=== PATIENT | female | born 1995 | race Caucasian/White ===

== ENCOUNTER 2018-01-19 16:26 | Emergency (ER) | payer OTHER, MEDICAID, SELFPAY ==
[2018-01-19 16:28] VITALS: BP 130/72; PULSE 108; RESP 18; TEMP 36.6; O2SAT 98; BMI 37.4
--- NOTE | 2018-01-19 17:09 | EKG12_ITS ---
Test Reason : VOMITING Blood Pressure : / mmHG Vent. Rate : 083 BPM Atrial Rate : 083 BPM P-R Int : 170 ms QRS Dur : 076 ms QT Int : 354 ms P-R-T Axes : 028 -01 022 degrees QTc Int : 415 ms Normal sinus rhythm Normal ECG Confirmed by DEMETRIA SZYMANSKI, BRAYAN ([id number]), news editor JESSICA HILL ([id number]) on 01/23/2018 1:41:24 PM Referred By: BECKIE Confirmed By:BRAYAN AUGUSTIN MD
[2018-01-19 17:12] VITALS: BP 110/67; PULSE 93; RESP 16; O2SAT 98
[2018-01-19 17:40] LABS: Absolute Lymphocyte Count 1.65 X10^3/ul (0.83-4.51); Absolute Neutrophil Count 6.6 X10^3/uL (2.0-7.7); Basophil# 0.02 X10^3/uL; Basophil% 0.2 % (0-1); Eosinophil# 0.13 X10^3/uL; Eosinophils% 1.5 % (0-5); Hematocrit 33.3 % (37-47); Lymphocyte # 1.65 X10^3/ul (4.0); Lymphocyte % 18.6 % (19-41); Mean Corpuscular Hgb 29.6 pg (27.0-32.0); Mean Corpuscular Volume 89.8 fL (81-99); Mean Platelet Vol. 8.6 fl (6.2-12.0); Monocyte# 0.48 X10^3/uL; Monocyte% 5.4 % (0-10); Neutrophil # 6.55 X10^3/uL (2.7-7.7); Neutrophil % 73.6 % (47-70); Platelet Count 197 K/mm3 (150-450); RBC Distribution Width CV 13.5 % (11.6-14.6); RBC Distribution Width SD 43.8 fl (35.1-43.9); Red Blood Count 3.71 M/mm3 (4.2-5.4); White Blood Count 8.9 K/mm3 (4.4-11.0)
[2018-01-19] MEDS: Lactated Ringers 2,000 ML 1000 ML IV (17:42)
[2018-01-19 17:43] LABS: POSITIVE COUNT NO; POSITIVE DIFFERENTIAL NO; POSITIVE MORPHOLOGY NO
[2018-01-19 18:09] LABS: Anion Gap 7 (5-15); BUN 4 mg/dL (7-18); BUN/Creat Ratio 10.9 RATIO (10-20); Calcium,Total 7.9 mg/dL (8.5-10.1); Chloride 104 mmol/L (98-107); Creatinine, Serum 0.37 mg/dL (0.55-1.02); EST Glomerular Filtration Rate 232 mL/min (>60); Est Glom Filt Rate - Afr Amer 281 mL/min (>60); Estimated Creatinine Clearance 178.44 ml/min; Glucose 70 mg/dL (74-106); Potassium 3.4 mmol/L (3.5-5.1); Sodium Level 137 mmol/L (136-145)
--- NOTE | 2018-01-19 18:48 | ED.VISSUMM ---
- ER Visit Summary Date of Service: 01/19/18 Chief Complaint: Syncope History of Present Illness: The patient is a 22 F presenting for evaluation secondary to syncope in the setting of nausea vomiting diarrhea and a 29 week . Patient is a at 29 weeks. Patient states that over the last 2-3 days she has had a GI illness associated with multiple episodes of nonbloody non-mucousy diarrhea and up to 3 episodes per day of nonbloody non-bilious emesis. She denies any abdominal pain. She denies any decreased movement vaginal bleeding or loss of fluid. Patient states she was walking down some stairs today and then had a sudden spell where she felt that she was going to pass out and actually had to sit down. She did not completely pass out she denies any chest pain shortness of breath palpitations. She denies any DVT or PE risk factors other than . Review of systems otherwise negative. Physical Examination: Vital signs are within normal limits, patient is afebrile. General: Patient is well-nourished well-developed and in no acute distress. Head: Normocephalic, atraumatic Eyes: Pupils equal round and reactive bilaterally, extra occular motion intact bialterally ENT: Moist mucous membranes Neck: Supple, no lymphadenopathy, no JVD, no meningismus CVS: Heart regular rate and rhythm, no murmurs, rubs or gallops, radial pulses 2+ bilaterally Resp: Respirations nondistressed, lung sounds clear bilaterally Abdomen: Soft, nontender, appropriately gravid, normal bowel sounds Back: Nontender Extremities: Nontender, atraumatic, active full range of motion, no peripheral edema Skin: warm, no rashes, no petechia Neuro: Alert and oriented x 4, CN 2-12 intact, no lateralizing neurological defecits Psyc: Normal affect Test Results: EKG shows sinus rate of [address] segments normal T waves. No evidence of abnormal MO and QTc intervals. No evidence of RV strain. No evidence of S1, Q 3, T3 morphology. CBC shows mild anemia hemoglobin 11. Chemistry shows mild hypokalemia 3.4 and glucose 70. Troponin negative. Emergency Department Course and Treatment: Patient presented with syncope in the setting of as well as a recent GI illness. IV was established she was given 2 L of lactated Ringer's. Patient's workup was found to be unremarkable. I did consider the possibility of PE in this patient, but given the fact that she had a recent illness that would dehydrate her, and would give her a clear reason to have syncope I do not believe that workup from that aspect is necessary as she is not tachycardic, and has no evidence of abnormal EKG, and has no evidence of hypoxia. Patient had improvement on repeat evaluation and the patient was discharged in stable condition. Disposition: Discharge Impression: 1. Gastroenteritis 2. Syncope 3. 29 week This note was generated with [employer] dictation software. It may contain incorrect words, spelling, and punctuation that were not noted in review of the chart prior to signing ED Disposition - Plan for ED Patient: Disposition: Home or Assisted Living Chief Complaint: Nausea/Vomiting/Diarrhea Diagnosis: Gastroenteritis, Syncope Instructions: ED Gastroenteritis Viral Referrals: Jose Daniel Russell MD [Primary Care Provider] - As Needed
--- NOTE | 2018-01-19 18:53 | ED.DCSUM_ITS ---
- ER Visit Summary Date of Service: 01/19/18 Chief Complaint: Syncope History of Present Illness: The patient is a 22 F presenting for evaluation secondary to syncope in the setting of nausea vomiting diarrhea and a 29 week . Patient is a at 29 weeks. Patient states that over the last 2 -3 days she has had a GI illness associated with multiple episodes of nonbloody non-mucousy diarrhea and up to 3 episodes per day of nonbloody non-bilious emesis. She denies any abdominal pain. She denies any decreased movement vaginal bleeding or loss of fluid. Patient states she was walking down some stairs today and then had a sudden spell where she felt that she was going to pass out and actually had to sit down. She did not completely pass out she denies any chest pain shortness of breath palpitations. She denies any DVT or PE risk factors other than . Review of systems otherwise negative. Physical Examination: Vital signs are within normal limits, patient is afebrile. General: Patient is well-nourished well-developed and in no acute distress. Head: Normocephalic, atraumatic Eyes: Pupils equal round and reactive bilaterally, extra occular motion intact bialterally ENT: Moist mucous membranes Neck: Supple, no lymphadenopathy, no JVD, no meningismus CVS: Heart regular rate and rhythm, no murmurs, rubs or gallops, radial pulses 2 + bilaterally Resp: Respirations nondistressed, lung sounds clear bilaterally Abdomen: Soft, nontender, appropriately gravid, normal bowel sounds Back: Nontender Extremities: Nontender, atraumatic, active full range of motion, no peripheral edema Skin: warm, no rashes, no petechia Neuro: Alert and oriented x 4, CN 2-12 intact, no lateralizing neurological defecits Psyc: Normal affect Test Results: EKG shows sinus rate of [address] segments normal T waves. No evidence of abnormal TX and QTc intervals. No evidence of RV strain. No evidence of S1, Q 3, T3 morphology. CBC shows mild anemia hemoglobin 11. Chemistry shows mild hypokalemia 3.4 and glucose 70. Troponin negative. Emergency Department Course and Treatment: Patient presented with syncope in the setting of as well as a recent GI illness. IV was established she was given 2 L of lactated Ringer's. Patient's workup was found to be unremarkable. I did consider the possibility of PE in this patient, but given the fact that she had a recent illness that would dehydrate her, and would give her a clear reason to have syncope I do not believe that workup from that aspect is necessary as she is not tachycardic, and has no evidence of abnormal EKG, and has no evidence of hypoxia. Patient had improvement on repeat evaluation and the patient was discharged in stable condition. Disposition: Discharge Impression: 1. Gastroenteritis 2. Syncope 3. 29 week This note was generated with [employer] dictation software. It may contain incorrect words, spelling, and punctuation that were not noted in review of the chart prior to signing ED Disposition - Plan for ED Patient: Disposition: Home or Assisted Living Chief Complaint: Nausea/Vomiting/Diarrhea Diagnosis: Gastroenteritis, Syncope Instructions: ED Gastroenteritis Viral Referrals: Jose Daniel Russell MD [Primary Care Provider] - As Needed
[2018-01-19 19:10] VITALS: PULSE 97; O2SAT 100
== END 2018-01-19 19:11 | disposition home or self-care (01) ==
PROVIDERS: Emergency Provider Emergency Medicine; Family Provider Family Medicine; PCP Family Medicine
DX: O99.613 Diseases of the digestive system complicating pregnancy, third trimester (principal); K52.9 Noninfective gastroenteritis and colitis, unspecified; R55 Syncope and collapse; O99.113 Other diseases of the blood and blood-forming organs and certain disorders involving the immune mechanism complicating pregnancy, third trimester; O99.013 Anemia complicating pregnancy, third trimester; E87.6 Hypokalemia; Z79.899 Other long term (current) drug therapy; Z3A.29 29 weeks gestation of pregnancy
CPT/HCPCS: 80048; 84484; 85025; 93005; 96360; 99283; J7120; A4216

== ENCOUNTER 2018-02-16 08:45 | Outpatient (CLI) | payer OTHER, MEDICAID, SELFPAY ==
[2018-02-16 09:01] VITALS: BMI 38.2
[2018-02-16 09:37] LABS: ROM Internal Control Test YES-OK TO RESULT pt. (Internal QC); ROM Patient Test Negative (Negative)
--- NOTE | 2018-02-22 21:20 | OB.TRI.NOTE ---
History of Present Illness Date of Service: 02/16/18 Was patient seen by the physician?: No Reason For Visit: R/O ROM Final CASEY: 04/11/18 Gestational age: 33 Weeks and 1 Days Home Medications Medication Instructions Recorded Venlafaxine HCl [Effexor] 75 mg PO DAILY 05/21/14 Pnv No.95/Ferrous Fum/Folic AC 1 each PO DAILY 01/19/18 [ Multivitamin Tablet] Venlafaxine XR [Effexor Xr] 37.5 mg PO DAILY 01/19/18 Allergies No Known Allergies Allergy (Verified 02/16/18 09:30) NST - FHR Rate Baby A Baseline: 135 Variability:: Moderate Accelerations:: 15 x 15 Decelerations:: Variable NST Reactive:: Yes Uterine Activity:: irregular Impression/Plan Reactive NST for threatened PTL
== END 2018-02-16 10:05 | disposition home health service (06) ==
LOC: WPOUT 09:00 → WP 09:09
PROVIDERS: Family Provider Family Medicine; PCP Family Medicine; Visit Provider Advanced Practice Midwife
DX: O60.03 Preterm labor without delivery, third trimester (principal); Z3A.33 33 weeks gestation of pregnancy
CPT/HCPCS: 59025; 59050; 84112; 99218; G0378

== ENCOUNTER 2018-03-13 20:05 | Outpatient (CLI) | payer OTHER, MEDICAID, SELFPAY ==
[2018-03-13 20:35] VITALS: BMI 39.9
[2018-03-13 20:53] LABS: Color, Urine Yellow (Yellow); Glucose, Dipstick Normal (Normal); Ketone-Dipstick Negative (Negative); Leukocyte Esterase-Dipstick Negative /ul (Negative); Nitrite-Dipstick Negative (Negative); Occult Blood-Urine Negative /ul (Negative); Protein-Dipstick Negative (Negative); Specific Gravity, Urine 1.005 (1.002-1.030); Urine Bilirubin Dipstick Negative (Negative); Urine Clarity Sl. Cloudy (Clear); Urine Urobilinogen Normal (Normal)
--- NOTE | 2018-03-14 08:04 | OB.TRI.NOTE ---
History of Present Illness Date of Service: 03/14/18 Reason For Visit: R/O LABOR Final CASEY: 04/11/18 Gestational age: 36 Weeks and 0 Days Home Medications Medication Instructions Recorded Venlafaxine HCl [Effexor] 75 mg PO DAILY 05/21/14 Pnv No.95/Ferrous Fum/Folic AC 1 each PO DAILY 01/19/18 [ Multivitamin Tablet] Venlafaxine XR [Effexor Xr] 37.5 mg PO DAILY 01/19/18 Allergies No Known Allergies Allergy (Verified 03/13/18 20:36) NST - FHR Rate Baby A Baseline: 120 Variability:: Moderate Accelerations:: 15 x 15 Decelerations:: Variable NST Reactive:: Yes Uterine Activity:: irregular Impression/Plan Reactive NST for false labor
== END 2018-03-13 22:20 | disposition home or self-care (01) ==
LOC: WPOUT 20:31 → WP 20:32
PROVIDERS: Family Provider Family Medicine; PCP Family Medicine; Visit Provider Obstetrics & Gynecology
DX: O47.03 False labor before 37 completed weeks of gestation, third trimester (principal); Z3A.36 36 weeks gestation of pregnancy
CPT/HCPCS: 59025; 59050; 81002; 99218; G0378

== ENCOUNTER 2018-04-05 04:50 | Inpatient (IN) | payer OTHER, MEDICAID, SELFPAY ==
--- NOTE | 2018-04-05 04:50 | DT_ITS ---
This patient was seen during an EMR downtime April 02, 2018 - April 09, 2018. This patient may have a combination of paper and electronic documentation or all paper documentation. All documentation is viewable within the e-chart portion of [facility] for each patient visit.
[2018-04-07 14:51] LABS: Hematocrit 32.3 % (37-47); Hemoglobin 10.2 g/dl (12.0-15.0); Mean Corp Hgb Conc 31.6 g/gl (32-36); Mean Corpuscular Hgb 26.8 pg (27.0-32.0); Mean Corpuscular Volume 84.8 fL (81-99); Mean Platelet Vol. 9.1 fl (6.2-12.0); Platelet Count 248 K/mm3 (150-450); RBC Distribution Width CV 14.5 % (11.6-14.6); RBC Distribution Width SD 43.6 fl (35.1-43.9); Red Blood Count 3.81 M/mm3 (4.2-5.4); Scan Indicated on CBC? Y/N NO; White Blood Count 9.6 K/mm3 (4.4-11.0)
[2018-04-09 17:05] LABS: Hematocrit 26.6 % (37-47); Hemoglobin 8.3 g/dl (12.0-15.0); Mean Corp Hgb Conc 31.2 g/gl (32-36); Mean Corpuscular Hgb 26.9 pg (27.0-32.0); Mean Corpuscular Volume 86.1 fL (81-99); Mean Platelet Vol. 8.8 fl (6.2-12.0); Platelet Count 200 K/mm3 (150-450); RBC Distribution Width CV 14.5 % (11.6-14.6); RBC Distribution Width SD 43.6 fl (35.1-43.9); Red Blood Count 3.09 M/mm3 (4.2-5.4); Scan Indicated on CBC? Y/N NO; White Blood Count 9.2 K/mm3 (4.4-11.0)
== END 2018-04-07 15:45 | disposition home or self-care (01) | DRG 766 ==
PROVIDERS: Admitting Provider Obstetrics & Gynecology; Family Provider Family Medicine; PCP Family Medicine; Visit Provider Obstetrics & Gynecology
PROC: 0UL70CZ Occlusion of Bilateral Fallopian Tubes with Extraluminal Device, Open Approach (ICD-10-PCS; CPT 59514; principal; 2018-04-05 07:15)
DX: O34.211 Maternal care for low transverse scar from previous cesarean delivery (principal); Z30.2 Encounter for sterilization; O99.02 Anemia complicating childbirth; O99.344 Other mental disorders complicating childbirth; F41.9 Anxiety disorder, unspecified; K21.9 Gastro-esophageal reflux disease without esophagitis; O99.214 Obesity complicating childbirth; Z79.899 Other long term (current) drug therapy; Z87.891 Personal history of nicotine dependence; Z3A.39 39 weeks gestation of pregnancy; Z37.0 Single live birth
CPT/HCPCS: 85027; 86850; 86900; 99218; J7120; G0378; J2405

== ENCOUNTER → 2024-05-22 | Outpatient (CLI) | payer BC, MEDICAID, SELFPAY ==
[2024-05-22 17:45] LABS: Absolute Lymphocyte Count 1.63 X10^3/uL (0.83-4.51); Absolute Neutrophil Count 4.7 X10^3/uL (2.0-7.7); Basophil# 0.05 X10^3/uL; Basophil% 0.7 % (0-1); Eosinophil# 0.11 X10^3/uL; Eosinophils% 1.6 % (0-5); Hematocrit 40.3 % (37-47); Hemoglobin 13.4 g/dL (12.0-15.0); Lymphocyte # 1.63 X10^3/ul (0.83-4.51); Lymphocyte % 23.5 % (19-41); Mean Corp Hgb Conc 33.3 g/dL (32-36); Mean Corpuscular Hgb 29.8 pg (27.0-32.0); Mean Corpuscular Volume 89.6 fL (81-99); Mean Platelet Vol. 8.7 fl (6.2-12.0); Monocyte# 0.38 X10^3/uL; Monocyte% 5.5 % (0-10); NRBC Flagged by Analyzer 0 % (0-5); Neutrophil # 4.73 X10^3/uL (2.7-7.7); Neutrophil % 68.1 % (47-70); Platelet Count 251 K/mm3 (150-450); RBC Distribution Width CV 12.5 % (11.6-14.6); RBC Distribution Width SD 40.4 fl (35.1-43.9); White Blood Count 6.9 K/mm3 (4.4-11.0)
[2024-05-22 17:53] LABS: Hemoglobin A1c 5.2 % (3.8-5.6)
[2024-05-22 17:57] LABS: ALB/GLOB Ratio 0.9 RATIO (0.9-2.4); AST(SGOT) 32 U/L (15-37); Alanine Aminotransfer ALT/SGPT 41 U/L (13-56); Albumin, Serum 3.6 g/dL (3.2-5.0); Alkaline Phosphatase 101 U/L (45-117); Anion Gap 7 (5-15); BUN 8 mg/dL (7-18); BUN/Creat Ratio 10.8 RATIO (10-20); Calcium,Total 9.1 mg/dL (8.5-10.1); Chloride 103 mmol/L (98-107); Cholesterol 195 mg/dL (200); Creatinine, Serum 0.74 mg/dL (0.55-1.02); EST Glomerular Filtration Rate 99 mL/min (>60); Est Glom Filt Rate - Afr Amer 119 mL/min (>60); Globulin 3.8 g/dL (2.2-4.2); Glucose 91 mg/dL (74-106); High Density Lipoprotein 34 mg/dL; Potassium 3.8 mmol/L (3.5-5.1); Protein, Total 7.4 g/dL (6.4-8.2); Sodium Level 138 mmol/L (136-145); T4 Free Direct 0.89 ng/dL (0.76-1.46); Triglycerides 292 mg/dL; Very Low Density Lipoprotein 58 mg/dL (5-40)
[2024-05-24 08:13] LABS: Insulin Level 86.9 uIU/mL (2.6-24.9)
== END | disposition home or self-care (01) ==
LOC: MFPLAB 15:35
PROVIDERS: PCP Family Medicine; Visit Provider Family Medicine
DX: R42 Dizziness and giddiness (principal); E66.01 Morbid (severe) obesity due to excess calories; Z13.1 Encounter for screening for diabetes mellitus
CPT/HCPCS: 36415; 80053; 80061; 82306; 83036; 83525; 84439; 84443; 85025